=== PATIENT | male | born 1950 ===

== ENCOUNTER 2022-06-12 05:45 | Day surgery (SDC) | payer OTHER ==
[~2022-06-12] VITALS: Ht 170.2 cm; Wt 75.3 kg
[~2022-06-12 05:45] MED LIST: CHILDREN'S ASPI81 MG PO; ENTRESTO 24 MG1 EACH PO; JARDIANCE10 MG PO; LASIX40 MG PO; LIPITOR40 MG PO; PLAVIX75 MG PO; PROVENTIL HFA6.7 GM IH; TOPROL XL50 M1 PO
[2022-06-12] MEDS ORDERED: TRAM1TAB98 PO (10:37)
== END 2022-06-12 13:15 | disposition home or self-care (01) ==
LOC: CIR.AMB 05:45
PROVIDERS: ATTEND Surgery
DX: R85.613 High grade squamous intraepithelial lesion on cytologic smear of anus (HGSIL) (principal); K62.0 Anal polyp; K62.1 Rectal polyp; K62.89 Other specified diseases of anus and rectum; Z20.822 Contact with and (suspected) exposure to COVID-19; I10 Essential (primary) hypertension; Z95.810 Presence of automatic (implantable) cardiac defibrillator; Z87.891 Personal history of nicotine dependence; E11.9 Type 2 diabetes mellitus without complications; Z86.73 Personal history of transient ischemic attack (TIA), and cerebral infarction without residual deficits; Z79.84 Long term (current) use of oral hypoglycemic drugs